=== PATIENT | male | born 1960 | race Caucasian/White ===

== ENCOUNTER 2023-11-19 14:24 | Emergency (ER) | payer OTHER, SELFPAY ==
[2023-11-19 14:26] VITALS: BP 130/81
[2023-11-19 15:21] VITALS: BP 133/70
[2023-11-19 15:44] LABS: % Basophils 0.2 % (0-2); % Eosinophils 0.2 % (0-6); % Immature Granulocytes 0.4 % (0-0.5); % Lymphocytes 8.5 % (20.5-51.1); % Monocytes 6.5 % (1.7-9.3); % Neutrophils 84.2 % (42.2-75.2); Absolute Immature Granulocytes 0.1 10^3/uL (0-0.05); Absolute Lymphocytes 1.1 10^3/uL (1.2-3.4); Absolute Monocytes 0.9 10^3/uL (0.1-0.6); Absolute Neutrophils 11.2 10^3/uL (1.4-6.5); Hematocrit 41.7 % (39.0-52.0); Mean Corpuscular Hgb 30.5 pg (27.0-31.0); Mean Corpuscular Volume 84.8 fL (80.0-94.0); Mean Platelet Volume 10.3 fL (7.4-10.4); Nucleated Red Blood Cells % 0 % (-); Platelet Count 160 10^3/uL (130-400); Red Blood Cell Count 4.92 10^6/uL (4.70-6.10); White Blood Cell Count 13.3 10^3/uL (4.8-10.8)
[2023-11-19 15:48] LABS: Urine Albumin Trace (Neg - Trace); Urine Bilirubin Negative (Negative); Urine Character Clear (Clear); Urine Color Yellow; Urine Glucose Negative (Negative); Urine Ketone Negative (Negative); Urine Leukocyte 2+ (Negative); Urine Nitrite Negative (Negative); Urine Occult Blood Trace (Negative); Urine Specific Gravity 1.015 (<1.030); Urine Urobilinogen 1+ (Neg - 1+)
[2023-11-19 15:55] LABS: Urine Bacteria Few (Negative); Urine Red Blood Cell 0-2 /HPF (0-2); Urine White Cell 50-60 /HPF (0-5)
[2023-11-19 16:00] VITALS: BP 128/86
[2023-11-19 16:03] LABS: ALT (SGPT) 44 U/L (0-50); AST (SGOT) 27 U/L (17-59); Albumin 4.5 g/dl (3.5-5.0); Alkaline Phosphatase 71 U/L (38-126); Blood Urea Nitrogen 15 mg/dl (9-20); Calcium 9.1 mg/dl (8.4-10.2); Carbon Dioxide 24 mmol/L (22-30); Chloride 100 mmol/L (98-107); Glucose 125 mg/dl (70-99); Sodium 135 mmol/L (135-145); Total Bilirubin 0.8 mg/dl (0.2-1.3); Total Protein 7.2 g/dl (6.3-8.2); eGFR > 60.00
[2023-11-19 16:32] VITALS: BMI 34.1
[2023-11-19] MEDS: ROCEPHIN 2000 MG IV (16:33)
[2023-11-19 16:43] VITALS: BP 155/86
[2023-11-19] MEDS: TORADOL 15 MG IV (16:50)
[2023-11-19] MEDS: ZOFRAN 4 MG IV (16:52)
[2023-11-19 17:00] VITALS: BP 128/78
[2023-11-19] MEDS: NSS 1000 IV (17:28)
[2023-11-19] MEDS: TYLENOL 650 MG PO (17:29)
[2023-11-19 18:00] VITALS: BP 119/98
--- NOTE | 2023-11-19 18:54 | ED.GENMED ---
History of Present Illness
General
Chief Complaint: Male Genito-Urinary Symptoms
Source: patient
Exam Limitations: none
Time Seen by Provider: 11/19/23 15:07
Nursing documentation reviewed up to this point in time: agreed with
History of Present Illness
History of Present Illness:
63-year-old male with past medical history of hypertension hyperlipidemia presenting to the emergency department today with concerns of ongoing urinary symptoms including frequency urgency as well as a fever now having some left-sided flank
discomfort starting today. Diagnosed with a UTI yesterday 3 total doses of Bactrim. He feels that symptoms are slightly worsened today which prompted come to the ER. Denies any history of urinary issues denies any bowel changes denies any chest
pain shortness of breath.
Past History
Past History
ED Past Medical History: HTN and Other (diverticulitis)
ED Past Surgical History: None
Social History
Tobacco: Non-smoker
Alcohol: None
Drug: None
Personal:
Living: with family
Employment: Employed
Review of Systems
Review of Systems
Allergies reviewed?: Yes
All Other Systems: ROS reviewed and negative except as documented in HPI and ROS
Phy Exam
Physical Exam
Physical Exam:
GENERAL: Alert , in no apparent distress
EYE: pupils equal and reactive
NECK: Supple, no significant adenopathy.
ENT: o/p clr, mmm.
CARDIAC: Regular rate and rhythm .
LUNGS: Clear breath sounds bilaterally, no acute respiratory distress, no wheezes/rales/rhonchi
ABDOMEN: Soft, without focal tenderness, no r/g, no cvat
NEUROLOGICAL: Alert and oriented, no focal neuro deficits
SKIN: Warm and dry, skin intact.
MUSCULOSKELETAL: No edema, well perfused.
PSYCH: Normal and appropriate interaction.
Course
Orders/Labs/Results
Orders:
Orders
11/19/23 15:27
Complete Blood Count/With Diff Urgent
Comprehensive Metabolic Panel Urgent
Urinalysis Reflex To Culture Urgent
Date Specimen was Collected: 11/19/23
Time Specimen was Collected: 15:22
Urine Microscopic Reflex Cult Urgent
Urine Culture Urgent
PRESTON Source: U
Specimen Description:
Date Specimen was Collected: 11/19/23
Time Specimen was Collected: 15:22
11/19/23 15:53
CefTRIAXone [Rocephin] 2,000 mg IV NOW STA
11/19/23 15:57
CT Abd/pel Without Iv Or Oral Urgent
Comment:
Reason For Exam: left flank pain
11/19/23 16:31
Sterile Water [Sterile Water For Injection] 20 ml .ROUTE .STK-MED
11/19/23 16:49
Ketorolac [Toradol] 15 mg .ROUTE .STK-MED ONE
Ondansetron Injectable [Zofran] 4 mg .ROUTE .STK-MED ONE
11/19/23 16:50
Ketorolac [Toradol] 15 mg IV NOW STA
11/19/23 16:52
Ondansetron Injectable [Zofran] 4 mg IV NOW STA
11/19/23 17:11
0.9% Sodium Chloride 1000 ml [Nss] 1,000 ml IV BOLUS
11/19/23 17:26
Acetaminophen [Tylenol] 650 mg .ROUTE .STK-MED ONE
11/19/23 17:29
Acetaminophen [Tylenol] 650 mg PO NOW STA
Abnormal Lab Results
11/19/23
15:27
WBC 13.3 H 10^3/uL
(4.8-10.8)
Abs Immat Gran (auto) 0.1 H 10^3/uL
(0-0.05)
Absolute Neuts (auto) 11.2 H 10^3/uL
(1.4-6.5)
Absolute Lymphs (auto) 1.1 L 10^3/uL
(1.2-3.4)
Absolute Monos (auto) 0.9 H 10^3/uL
(0.1-0.6)
Neutrophils % 84.2 H %
(42.2-75.2)
Lymphocytes % 8.5 L %
(20.5-51.1)
Glucose 125 H mg/dl
(70-99)
Ur Occult Blood Reflex Trace A
(Negative)
Leukocyte Esterase Rfl 2+ A
(Negative)
Urine WBC (Reflex) 50-60 A /HPF
(0-5)
Urine Bacteria (Reflex) Few A
(Negative)
11/19/23 15:27
11/19/23 15:27
Vital Signs
Initial and Last Documented VS:
Initial Vital Signs
Temp Pulse Resp BP Pulse Ox
101.1 F H 92 16 130/81 95
11/19/23 14:26 11/19/23 14:26 11/19/23 14:26 11/19/23 14:26 11/19/23 14:26
Last Documented Vital Signs
Temp Pulse Resp BP Pulse Ox
101.1 F H 92 16 119/98 91
11/19/23 14:26 11/19/23 14:26 11/19/23 14:26 11/19/23 18:00 11/19/23 18:00
MDM/Problems Addressed
MDM/Problems Addressed:
63-year-old male presenting to the emergency department today with concerns of worsening UTI symptoms. Diagnosed with a UTI yesterday started on Bactrim to 24 hours of medications at this point. Upon arrival patient with a temperature of 101.1 but
otherwise normal vital signs. White count of 13.3 other labs unremarkable. Urinalysis consistent with ongoing urinary tract infection. CT scan without emergent findings no signs of active kidney stones or significant inflammation seen. Patient
given dose of ceftriaxone here for ongoing UTI he claims symptoms were significantly improved throughout ER stay concerning this patient appears stable for outpatient management return precautions were given.
*Critical Care Note
Total Time (30-74mins, 75-104mins- exclusive of procedures): Not Applicable
ED Attending Note
-
Portions of this chart may have been created with voice recognition software.� Occasional wrong word or��sound alike� substitutions may have occurred due to the inherent limitations of voice recognition software.
Discharge Plan
Departure
Patient Disposition: Home (Routine Discharge)
Date of Disposition: 11/19/23
Time of Disposition: 18:55
Patient with high blood pressure during this ER visit?: No
Condition: Good
Covid-19: Not Applicable
Discharge Problem:
Pyelonephritis
Instructions: Urinary Tract Infection, Adult ED
Prescriptions:
New
cefpodoxime 200 mg tablet
200 mg PO BID 10 Days Qty: 20 0RF
No Action
Potaba 500 MG capsule
1 mg PO DAILY
aspirin 81 MG tablet,chewable
81 mg PO DAILY
benazepril [Lotensin] 20 MG tablet
20 mg PO DAILY
magnesium 250 MG tablet
250 mg PO DAILY
mecobalamin (vitamin B12) 1,000 MCG tablet,disintegrating
1,000 mcg sublingual DAILY
adgcegl-daoi-bvrhc-oreg-capryl
1 tab PO DAILY
Referrals:
Anita Lira DO [Family Provider] -
Activity Restrictions/Additional Instructions:
You came to the emergency department today with concerns of ongoing urinary symptoms. Here you to reassuring assessment you do have a slight white count. You are found to have ongoing urinary tract infection. You were switched to a cephalosporin.
Please take the cefpodoxime twice daily for the next 10 days and follow-up closely with the primary care doctor within 1 week. Return to the emergency department for any worsening, new or concerning symptoms.
Interventions
Interventions:
*General Assessment Last Done: 11/19/23 16:34
*Neglect/Abuse Screening Last Done: 11/19/23 16:34
ED- Fall Risk Assessment Last Done: 11/19/23 16:38
*ED COVID-19 Vaccine History Last Done: 11/19/23 16:34
*Nursing Disposition Last Done: 11/19/23 19:11
ED-Male Genitourinary Assessment Last Done: 11/19/23 16:44
Discharge Date and Time
Discharge Date/Time: 11/19/23 19:12
Print Language: DOMINICAN
== END 2023-11-19 19:12 | disposition home or self-care (01) ==
LOC: EMR 14:24
PROVIDERS: Physician Assistant; EMERGENCY PHYSICIAN Emergency Medicine; FAMILY PHYSICIAN Family Medicine
DX: N12 Tubulo-interstitial nephritis, not specified as acute or chronic (principal); I10 Essential (primary) hypertension; E78.00 Pure hypercholesterolemia, unspecified
CPT/HCPCS: 99284; 96374; 96375; 96361; 74176; 80053; 81003; 81015; 85025; 87086

== ENCOUNTER 2024-07-05 21:53 | Inpatient (IN) | payer BC, SELFPAY ==
[2024-07-05 18:18] VITALS: BP 141/87
[2024-07-05 18:36] LABS: % Basophils 0.1 % (0-2); % Eosinophils 0.3 % (0-6); % Immature Granulocytes 0.3 % (0-0.5); % Lymphocytes 12.2 % (20.5-51.1); % Monocytes 11.4 % (1.7-9.3); % Neutrophils 75.7 % (42.2-75.2); Absolute Lymphocytes 1.4 10^3/uL (1.2-3.4); Absolute Monocytes 1.3 10^3/uL (0.1-0.6); Absolute Neutrophils 8.8 10^3/uL (1.4-6.5); Hematocrit 44.5 % (39.0-52.0); Hemoglobin 15.4 g/dL (13.0-18.0); Mean Corp Hgb Conc. 34.6 g/dL (33.0-37.0); Mean Corpuscular Hgb 30.9 pg (27.0-31.0); Mean Corpuscular Volume 89.2 fL (80.0-94.0); Mean Platelet Volume 9.9 fL (7.4-10.4); Nucleated Red Blood Cells % 0 % (-); Platelet Count 185 10^3/uL (130-400); Red Blood Cell Count 4.99 10^6/uL (4.70-6.10); Red Cell Dist. Width 12.8 % (11.5-14.5); White Blood Cell Count 11.6 10^3/uL (4.8-10.8)
[2024-07-05 18:39] LABS: Urine Albumin 2+ (Neg - Trace); Urine Bilirubin Negative (Negative); Urine Character Clear (Clear); Urine Color Yellow; Urine Glucose Negative (Negative); Urine Ketone Negative (Negative); Urine Leukocyte Negative (Negative); Urine Nitrite Negative (Negative); Urine Occult Blood 2+ (Negative); Urine Specific Gravity 1.015 (<1.030); Urine Urobilinogen Negative (Neg - 1+)
[2024-07-05 18:54] LABS: ALT (SGPT) 65 U/L (0-50); AST (SGOT) 28 U/L (17-59); Albumin 5.1 g/dl (3.5-5.0); Alkaline Phosphatase 58 U/L (38-126); Blood Urea Nitrogen 20 mg/dl (9-20); Calcium 9.3 mg/dl (8.4-10.2); Carbon Dioxide 28 mmol/L (22-30); Chloride 100 mmol/L (98-107); Glucose 116 mg/dl (70-99); Potassium 4.3 mmol/L (3.5-5.1); Sodium 134 mmol/L (135-145); Total Bilirubin 0.9 mg/dl (0.2-1.3); Total Protein 7.7 g/dl (6.3-8.2); eGFR > 60.00
[2024-07-05 18:55] LABS: Lipase 121 U/L (23-300)
--- NOTE | 2024-07-05 19:14 | ED.GENMED ---
History of Present Illness
General
Chief Complaint: Abdominal Pain
Source: patient and spouse
Exam Limitations: none
Time Seen by Provider: 07/05/24 19:03
Nursing documentation reviewed up to this point in time: agreed with
History of Present Illness
History of Present Illness:
63 male history of diverticulitis no prior abdominal surgery nondrinker non-smoker 2 days of constipation lower abdominal pain urinary frequency no pain with urination no chest pain or shortness of breath no cough
Past History
Past History
ED Past Medical History: HTN and Other (diverticulitis)
ED Past Surgical History: None
Social History
Tobacco: Non-smoker
Alcohol: None
Drug: None
Personal:
Living: with family
Employment: Employed
Review of Systems
Review of Systems
All Other Systems: ROS reviewed and negative except as documented in HPI and ROS
Constitutional: Reports fever and fatigue
EENT: Reports no symptoms
Respiratory: Reports no symptoms; Denies trouble breathing
Cardiac: Reports no symptoms
ABD/GI: Reports abdominal pain and constipated
: Reports frequency
Musculoskeletal: Reports no symptoms
Skin: Reports no symptoms
Neurological: Reports weakness
Phy Exam
Physical Exam
Physical Exam:
Physical Exam
General: 63 male febrile looks uncomfortable
Neck: No jaundice
Heart: s1/s2 regular rate and rhythm, no murmur. equal radial pulses.
Lungs: no acute respiratory distress. clear bilaterally
Abdomen: Tender in the right greater than left lower abdomen
Neuro: alert and oriented. no focal neurological deficits
Skin: no rash
Psychiatric: well kept. interactive and cooperative
Extremities: no edema.
Sepsis
Sepsis Screening
Sepsis Assessment: Sepsis Ruled Out
Sepsis Screen
Sepsis Screen: Sepsis Ruled Out
Date: 07/05/24
Time: 20:20
Course
Orders/Labs/Results
Orders:
Orders
07/05/24 18:29
Complete Blood Count/With Diff Urgent
Comprehensive Metabolic Panel Urgent
Lipase Urgent
Urinalysis Reflex To Culture Urgent
Date Specimen was Collected: 07/05/24
Time Specimen was Collected: 18:13
Urine Microscopic Reflex Cult Urgent
07/05/24 19:12
CT Abd/Pel (IV only)-DH only Urgent
Comment:
Reason For Exam: pain fever
0.9% Sodium Chloride 1000 ml [Nss] 1,000 ml IV BOLUS
Acetaminophen [Tylenol] 1,000 mg PO NOW STA
HYDROmorphone [Dilaudid] 1 mg IV NOW STA
Ondansetron Injectable [Zofran] 4 mg IV NOW STA
Abnormal Lab Results
07/05/24
18:29
WBC 11.6 H 10^3/uL
(4.8-10.8)
Absolute Neuts (auto) 8.8 H 10^3/uL
(1.4-6.5)
Absolute Monos (auto) 1.3 H 10^3/uL
(0.1-0.6)
Neutrophils % 75.7 H %
(42.2-75.2)
Lymphocytes % 12.2 L %
(20.5-51.1)
Monocytes % 11.4 H %
(1.7-9.3)
Sodium 134 L mmol/L
(135-145)
Glucose 116 H mg/dl
(70-99)
ALT 65 H U/L
(0-50)
Albumin 5.1 H g/dl
(3.5-5.0)
Ur Occult Blood Reflex 2+ A
(Negative)
Urine RBC 3-6 A /HPF
(0-2)
Urine Bacteria (Reflex) Few A
(Negative)
Urine Albumin (Reflex) 2+ A
(Neg - Trace)
07/05/24 18:29
07/05/24 18:29
Vital Signs
Initial and Last Documented VS:
Initial Vital Signs
Temp Pulse Resp BP Pulse Ox
101.0 F H 93 17 141/87 96
07/05/24 18:18 07/05/24 18:18 07/05/24 18:18 07/05/24 18:18 07/05/24 18:18
Last Documented Vital Signs
Temp Pulse Resp BP Pulse Ox
99.7 F 82 20 126/77 95
07/05/24 19:39 07/05/24 19:40 07/05/24 19:40 07/05/24 19:40 07/05/24 19:40
MDM/Problems Addressed
Differential Diagnosis Includes:
Diverticulitis appendicitis colitis urinary pathology viral syndrome
MDM/Problems Addressed:
Constipation lower abdominal pain fever
Chronic conditions affecting care:
Diverticula
Acute Exacerbation and/or Progression of Chronic Illness:
Diverticulitis
*Radiology
Radiology exam reviewed: radiology read reviewed
*Pulse Oximetry
Patient hypoxic: no
*Critical Care Note
Total Time (30-74mins, 75-104mins- exclusive of procedures): Not Applicable
Update Note
Update Note:
Update labs noted, CT report noted reviewed with patient on exam still has moderate tenderness in the right lower abdomen believe at this point would be prudent admitted to the hospital serial abdominal exams IV antibiotics consideration for
specialty consultation
ED Attending Note
-
Portions of this chart may have been created with voice recognition software.� Occasional wrong word or��sound alike� substitutions may have occurred due to the inherent limitations of voice recognition software.
Discharge Plan
Departure
Patient Disposition: Admit
Date of Disposition: 07/05/24
Time of Disposition: 20:19
Presentation/result/management discussed w/ accepting MD/DO: Hospitalist
Patient with high blood pressure during this ER visit?: No
Condition: Fair
Discharge Problem:
Diverticulitis
Prescriptions:
No Action
Potaba 500 MG capsule
1 mg PO DAILY
aspirin 81 MG tablet,chewable
81 mg PO DAILY
benazepril [Lotensin] 20 MG tablet
20 mg PO DAILY
magnesium 250 MG tablet
250 mg PO DAILY
mecobalamin (vitamin B12) 1,000 MCG tablet,disintegrating
1,000 mcg sublingual DAILY
uclxypc-tpmu-cclse-oreg-capryl
1 tab PO DAILY
cefpodoxime 200 mg tablet
200 mg PO BID 10 Days Qty: 20 0RF
Referrals:
Ulises Knapp MD [Family Provider] -
Interventions
Interventions:
*Risk Screen - Suicide Last Done: 07/05/24 18:21
*General Assessment Last Done: 07/05/24 18:21
*Neglect/Abuse Screening Last Done: 07/05/24 18:21
*ED COVID-19 Vaccine History Last Done: 07/05/24 18:21
BS-Zzdaru-Wdgydtmgqq Assessment Last Done: 07/05/24 19:46
Discharge Date and Time
Print Language: GREENLANDIC
[2024-07-05 19:28] LABS: Urine Mucus Moderate; Urine Squamous Cell 0-2 /LPF (Few)
[2024-07-05 19:29] LABS: Urine Bacteria Few (Negative); Urine White Cell 0-2 /HPF (0-5)
[2024-07-05 19:39] VITALS: BMI 33.7
[2024-07-05 19:40] VITALS: BP 126/77
[2024-07-05] MEDS: NSS 1000 IV ×3 (19:41→22:57)
[2024-07-05] MEDS: TYLENOL 1000 MG PO (19:44)
[2024-07-05] MEDS: ZOFRAN 4 MG IV (19:46)
[2024-07-05] MEDS: DILAUDID 1 MG IV (19:50)
--- NOTE | 2024-07-05 20:55 | HPS.HSE ---
Family Physician
-
Family Physician: Ulises Knapp
Chief Complaint
-
Abd pain / fever
History of Present Illness
Patient is a 63y M with PMH significant for hypertension and diverticular disease who presents to ED complaining of abdominal pain. Patient states that he has been constipated for the past few days. Recent started a new weight loss diet with
increased fiber intake / raw fruits and vegetables. He developed RLQ abdominal pain about 2 days ago. Pain has persisted / increased since that time. Today he noted fever at home and presented to the ED for further evaluation and treatment.
Patient has prior h/o diverticulitis in the past. Last episode was 2015. Has not required surgery in the past for diverticular disease.
Medical History
Past Medical History
Past Medical History: Reports Other
Additional Past Medical History:
Hypertension
Diverticular Disease
Skin Cancer
Past Surgical History: Reports Other
Additional Past Surgical History:
Mohs Surgery
Cataracts
Social History
Tobacco: Non-smoker
Alcohol: Occasional
Drug: None
Family History
Family History: Not pertinent
Allergies / Home Medications
Allergies reflects when Allergies were last updated in [facility].
Home Medications with original date entered in [facility]
Allergy/Medication List:
Allergies
Allergy/AdvReac Type Severity Reaction Status Date / Time
No Known Allergies Allergy Verified 07/05/24 19:50
Home Medications
aspirin 81 mg chewable tablet 81 mg PO DAILY 08/24/18
benazepril 20 mg tablet (Lotensin) 20 mg PO DAILY 08/24/18
turmeric 400 mg capsule 400 mg PO DAILY 09/10/22
cyanocobalamin (vitamin B-12) 1,000 mcg tablet 1,000 mcg PO DAILY 07/05/24
docusate sodium 100 mg capsule (Colace) 200 mg PO HSPRN PRN constipation 07/05/24
magnesium oxide 250 mg PO DAILY 07/05/24
omega 7-zsr-srs-fish oil 1,000 mg (120 mg-180 mg) capsule (Fish Oil) 1 cap PO DAILY 07/05/24
potassium 99 mg tablet 99 mg PO DAILY 07/05/24
Review of Systems
-
History Source: Patient
A 12 point ROS was completed and negative except as noted: Yes
Constitutional: Reports Fever, Fatigue and Chills
EENT: Denies Sore Throat
Respiratory: Denies Cough or Trouble Breathing
Cardiac: Denies Chest Pain or Palpitations
Abdomen/GI: Reports Abdominal Pain and Constipated; Denies Nausea, Vomiting, Diarrhea, Bloody Stools or Black Stools
: Denies Dysuria, Frequency or Flank Pain
Musculoskeletal: Denies Joint Pain or Edema
Neurological: Denies Dizzy or Headache
Psych: Denies Depression or Anxiety
Physical Exam
Vital Signs
Vital Signs
Temp Pulse Resp BP Pulse Ox
99.7 F 82 20 126/77 95
07/05/24 19:39 07/05/24 19:40 07/05/24 19:40 07/05/24 19:40 07/05/24 19:40
Physical Exam
General: Other (63y M in no acute distress.)
HEENT: Moist mucous membranes and PERRLA
Respiratory: Clear; No Wheezes, Rales or Rhonchi
Cardiac: S1/S2 and Regular Rhythm; No Murmur
GI: Soft, Non Distended, Normal Bowel Sounds and Other (Pos tenderness R abdomen - mostly in RLQ. No rebound / guarding.)
Musculoskeletal: No Clubbing, No Cyanosis and No Edema
Neuro: AO x 3
Laboratory Results
-
07/05/24 18:29
07/05/24 18:29
Laboratory Results
Total Bilirubin 0.9 mg/dl (0.2-1.3) 07/05/24 18:29
AST 28 U/L (17-59) 07/05/24 18:
ALT 65 U/L (0-50) H 07/05/24 18:
Alkaline Phosphatase 58 U/L (38-126) 07/05/24 18:
Lipase 121 U/L (23-300) 07/05/24 18:
Impression/Plan
-
A/P: Patient is a 63y M with PMH significant for hypertension and diverticular disease who presents to ED complaining of abdominal pain and fever.
Acute Sigmoid Diverticulitis
Sepsis secondary to the above
- Admit for further evaluation and treatment.
- Patient presents with fever, tachycardia and tachypnea with CT and exam findings c/w diverticulitis.
- IV abx with Zosyn - transition to PO regimen once clinically improved.
- Supportive care with IVFs, pain control, etc.
- Follow for clinical improvement.
Benign Hypertension
- Stable. Continue home regimen with holding parameters.
DVT Prophylaxis: Lovenox
Code Status: Full
[2024-07-05 21:29] VITALS: BP 111/79
[2024-07-05] MEDS: ZOSYN 100 IV (21:36)
[2024-07-05 22:00] VITALS: BP 102/70
[2024-07-05 22:40] VITALS: BMI 33.9
[2024-07-05 22:41] VITALS: BP 117/71
[2024-07-05] MEDS: COMPAZINE 5 MG IV (22:57)
[2024-07-06] MEDS: ZOSYN 50 IV ×4 (03:10→22:36)
[2024-07-06 06:31] LABS: Hemoglobin 13.6 g/dL (13.0-18.0); Mean Corp Hgb Conc. 34.9 g/dL (33.0-37.0); Mean Corpuscular Hgb 31.1 pg (27.0-31.0); Mean Platelet Volume 9.9 fL (7.4-10.4); Platelet Count 144 10^3/uL (130-400); Red Blood Cell Count 4.38 10^6/uL (4.70-6.10); Red Cell Dist. Width 12.5 % (11.5-14.5)
[2024-07-06] MEDS: NSS 1000 IV ×2 (06:33→15:14)
[2024-07-06 06:51] LABS: Blood Urea Nitrogen 14 mg/dl (9-20); Calcium 8.4 mg/dl (8.4-10.2); Carbon Dioxide 28 mmol/L (22-30); Chloride 106 mmol/L (98-107); Estimated Creatinine Clearance 95 ml/min; Glucose 119 mg/dl (70-99); Potassium 4.6 mmol/L (3.5-5.1); Sodium 139 mmol/L (135-145); eGFR > 60.00
[2024-07-06 07:41] LABS: Hepatitis C Antibody Negative (Negative)
--- NOTE | 2024-07-06 07:55 | W.PN.HOSP.TC ---
Today's Communication/Plan
-
see PN
Assessment / Plan
Assessment / Plan
63yo M with PMHx of HTN, diverticulitis in 2016 came with week of constipation and worsening abdominal pain, found uncomplicated sigmoid diverticulitis with severe diverticulosis
A/P:
#uncomplicated sigmoid diverticulitis with severe diverticulosis
In the right paramedian pelvis - RLQ abd pain, appendix nomal as per CT
Zosyn
advance diet
pain mgmt
IVF
Outpatient colonoscopy in 4-6 weeks- patient verbalized understanding of the instructions
#Constipation
Laxatives PRN
#Fatty liver with mild ALT elevation
low fat diet
follow up with PCP
#R renal cyst
no follow up advised
#DJD
PT/OT
Tylenol
DVT ppx lovenox
Full code
I have spent at least 58min reviewing chart, test results and providing direct patient care
Anticipated Discharge: > 48 hours
Subjective/Interval History
-
Date of Service: July 06, 2024
Objective Data
-
Labs:
Laboratory Results
07/06/24
06:12
WBC 10.0
Hgb 13.6
Hct 39.0
Plt Count 144 D
Sodium 139
Potassium 4.6
Chloride 106
Carbon Dioxide 28
BUN 14
Creatinine 1.0
Glucose 119 H
Calcium 8.4
Vital Signs:
Vital Signs
Temp Pulse Resp BP Pulse Ox
97.8 F 85 18 117/71 95
07/06/24 03:17 07/05/24 22:41 07/05/24 22:41 07/05/24 22:41 07/06/24 03:15
I&O
07/05/24 07/06/24 07/07/24
06:59 06:59 06:59
Intake Total 1440 / 1440
Output Total 1849
Balance -410 / -410
Review of Systems
-
History Source: Patient
All other systems: Reviewed and negative
Abdomen/GI: Reports Abdominal Pain
Physical Exam
-
General: No Apparent Distress
HEENT: Normocephalic
Respiratory: Clear to Auscultation
Cardiac: Regular Rhythm
GI: Soft, Nondistended and Tender (RLQ)
Musculoskeletal: No Clubbing, No Cyanosis and No Edema
Skin: Warm
Neuro: Awake, Alert, Oriented and AO x 3
Psych: Calm
[2024-07-06] MEDS: SENOKOT-S 1 TABLET PO ×2 (08:24→22:36)
[2024-07-06] MEDS: LOW STRENGTH ASPIRIN 81 MG PO (08:24)
[2024-07-06] MEDS: ZESTRIL 20 MG PO (08:24)
[2024-07-06] MEDS: MIRALAX 17 GRAMS PO (08:24)
[2024-07-06 15:17] VITALS: BP 119/76
--- NOTE | 2024-07-06 15:33 | PTCARENOTE ---
verbal report over phone provided to Leighton Rn. pt is being transported in wheelchair to [facility] by this RN.
[2024-07-06 16:01] VITALS: BP 120/78
--- NOTE | 2024-07-06 16:05 | PN.CDI ---
Addendum entered and electronically signed by Aristides Milan MD 07/07/24 07:16:
patient not septic
Original Note:
CDI
- -
CDI:
Physician Documentation Request
Admit Date: 07/05/24 21:53
Dear Doctor Kayli,
Clinical Indicators:
The diagnosis of Sepsis was documented on 07/05, but is not consistently noted in subsequent documentation.
07/06 H & P, 'Sigmoid Diverticulitis Sepsis secondary to the above... Patient presents with fever, tachycardia and tachypnea'
Temp on admission:
07/05/24
18:18
Temp 101.0 F H
HR on admission:
07/05/24
18:18
Pulse 93
Please clarify the following:
Sepsis was present on admission and is now resolved.
Sepsis was ruled out
Other
Use of terms such as suspected, likely, concern for, or probable (associated with a specific diagnosis that is being evaluated, monitored, or treated as if it exists) are acceptable and can be coded in the inpatient setting, when documented at the
time of discharge.
Thank you,
Flavia Diaz RN BSN
CDI Specialist
available via tiger text
Please use your independent medical judgment in providing your response.
[2024-07-06] MEDS: LOVENOX 40 MG SC (17:06)
[2024-07-06 23:00] VITALS: BP 123/78
[2024-07-07] MEDS: NSS 1000 IV (00:29)
[2024-07-07] MEDS: ZOSYN 50 IV ×4 (06:02→22:22)
[2024-07-07 07:05] VITALS: BP 143/86
[2024-07-07 07:38] LABS: % Basophils 0.2 % (0-2); % Eosinophils 2.3 % (0-6); % Immature Granulocytes 0.2 % (0-0.5); % Lymphocytes 24.1 % (20.5-51.1); % Monocytes 11.2 % (1.7-9.3); Absolute Eosinophils 0.1 10^3/uL (0-0.7); Absolute Lymphocytes 1.3 10^3/uL (1.2-3.4); Absolute Monocytes 0.6 10^3/uL (0.1-0.6); Absolute Neutrophils 3.3 10^3/uL (1.4-6.5); Hematocrit 39.6 % (39.0-52.0); Hemoglobin 13.3 g/dL (13.0-18.0); Mean Corp Hgb Conc. 33.6 g/dL (33.0-37.0); Mean Corpuscular Hgb 30.6 pg (27.0-31.0); Mean Platelet Volume 10.4 fL (7.4-10.4); Nucleated Red Blood Cells % 0 % (-); Platelet Count 153 10^3/uL (130-400); Red Blood Cell Count 4.35 10^6/uL (4.70-6.10); Red Cell Dist. Width 12.8 % (11.5-14.5); White Blood Cell Count 5.3 10^3/uL (4.8-10.8)
[2024-07-07 08:07] LABS: ALT (SGPT) 43 U/L (0-50); AST (SGOT) 23 U/L (17-59); Albumin 3.6 g/dl (3.5-5.0); Alkaline Phosphatase 46 U/L (38-126); Blood Urea Nitrogen 11 mg/dl (9-20); Calcium 8.8 mg/dl (8.4-10.2); Carbon Dioxide 30 mmol/L (22-30); Chloride 107 mmol/L (98-107); Estimated Creatinine Clearance 73 ml/min; Glucose 102 mg/dl (70-99); Potassium 4.5 mmol/L (3.5-5.1); Sodium 142 mmol/L (135-145); Total Bilirubin 0.8 mg/dl (0.2-1.3); Total Protein 6.2 g/dl (6.3-8.2); eGFR > 60.00
[2024-07-07] MEDS: LOW STRENGTH ASPIRIN 81 MG PO (08:59)
[2024-07-07] MEDS: SENOKOT-S 1 TABLET PO ×2 (08:59→20:16)
[2024-07-07] MEDS: ZESTRIL 20 MG PO (09:07)
[2024-07-07] MEDS: MIRALAX PO (09:38)
[2024-07-07] MEDS: MIRALAX 17 GRAMS PO ×2 (09:41→20:16)
--- NOTE | 2024-07-07 10:55 | W.PN.HOSP.TC ---
Today's Communication/Plan
-
Still no BM and persistent discomfort - cont IV Zosyn
EKG for QTc for eventual outpatient Abx
cont full liqud diet
add BID miralax
labs in AM
Assessment / Plan
Assessment / Plan
63yo M with PMHx of HTN, diverticulitis in 2016 came with week of constipation and worsening abdominal pain, found uncomplicated sigmoid diverticulitis with severe diverticulosis
A/P:
#uncomplicated sigmoid diverticulitis with severe diverticulosis
In the right paramedian pelvis - RLQ abd pain, appendix nomal as per CT
Zosyn
advance diet
pain mgmt
IVF
Outpatient colonoscopy in 4-6 weeks- patient verbalized understanding of the instructions
#Constipation
Laxatives PRN
#Fatty liver with mild ALT elevation
low fat diet
follow up with PCP
#R renal cyst
no follow up advised
#DJD
PT/OT
Tylenol
DVT ppx lovenox
Full code
I have spent at least 58min reviewing chart, test results and providing direct patient care
Anticipated Discharge: 24 - 48 hours
Subjective/Interval History
-
Date of Service: July 07, 2024
Objective Data
-
Labs:
Laboratory Results
07/07/24
07:02
WBC 5.3
Hgb 13.3
Hct 39.6
Plt Count 153
Sodium 142
Potassium 4.5
Chloride 107
Carbon Dioxide 30
BUN 11
Creatinine 1.3
Glucose 102 H
Calcium 8.8
Total Bilirubin 0.8
AST 23
ALT 43
Alkaline Phosphatase 46
Vital Signs:
Vital Signs
Temp Pulse Resp BP Pulse Ox
98.8 F 58 18 134/79 96
07/07/24 07:05 07/07/24 09:07 07/07/24 07:05 07/07/24 09:07 07/07/24 09:43
I&O
07/06/24 07/07/24 07/08/24
06:59 06:59 06:59
Intake Total 1440 / 1440 2310 / 2310
Output Total 1850 / 1850 480 / 480
Balance -410 / -410 1830 / 1830
Review of Systems
-
History Source: Patient
All other systems: Reviewed and negative
Abdomen/GI: Reports Constipated
[2024-07-07 15:05] VITALS: BP 130/82
--- NOTE | 2024-07-07 15:42 | CM ---
CM following re: discharge planning.
Reviewed pt's chart, met with pt.
Pt is a 63 year old male, admitted with primary dx of DVY, Sepsis.
Pt reports he lives with spouse 2SH, 3 steps to enter, has 6 supportive children. Pt described himself as independent in all areas PERFUMER, drives, works.
PCP: Ulises Knapp
Pharmacy: [facility]
D/C plan: home with anticipated no needs. Spouse to transport at discharge.
CM will follow with discharge plan updates as hospitalization progresses
[2024-07-07] MEDS: LOVENOX 40 MG SC (17:08)
[2024-07-07 23:00] VITALS: BP 123/74
[2024-07-08] MEDS: ZOSYN 50 IV ×2 (03:20→09:21)
[2024-07-08 05:41] LABS: % Basophils 0.4 % (0-2); % Eosinophils 4.1 % (0-6); % Immature Granulocytes 0.2 % (0-0.5); % Lymphocytes 33.3 % (20.5-51.1); % Monocytes 11.4 % (1.7-9.3); % Neutrophils 50.6 % (42.2-75.2); Absolute Eosinophils 0.2 10^3/uL (0-0.7); Absolute Lymphocytes 1.6 10^3/uL (1.2-3.4); Absolute Monocytes 0.5 10^3/uL (0.1-0.6); Absolute Neutrophils 2.4 10^3/uL (1.4-6.5); Hematocrit 40.2 % (39.0-52.0); Hemoglobin 13.7 g/dL (13.0-18.0); Mean Corp Hgb Conc. 34.1 g/dL (33.0-37.0); Mean Corpuscular Volume 88.2 fL (80.0-94.0); Mean Platelet Volume 10.5 fL (7.4-10.4); Nucleated Red Blood Cells % 0 % (-); Platelet Count 184 10^3/uL (130-400); Red Blood Cell Count 4.56 10^6/uL (4.70-6.10); Red Cell Dist. Width 12.3 % (11.5-14.5); White Blood Cell Count 4.7 10^3/uL (4.8-10.8)
[2024-07-08 05:50] LABS: ALT (SGPT) 45 U/L (0-50); AST (SGOT) 24 U/L (17-59); Albumin 3.8 g/dl (3.5-5.0); Alkaline Phosphatase 51 U/L (38-126); Blood Urea Nitrogen 11 mg/dl (9-20); Calcium 9.2 mg/dl (8.4-10.2); Carbon Dioxide 28 mmol/L (22-30); Chloride 104 mmol/L (98-107); Estimated Creatinine Clearance 80 ml/min; Glucose 100 mg/dl (70-99); Potassium 4.2 mmol/L (3.5-5.1); Sodium 140 mmol/L (135-145); Total Bilirubin 0.6 mg/dl (0.2-1.3); Total Protein 6.5 g/dl (6.3-8.2); eGFR > 60.00
[2024-07-08 07:30] VITALS: BP 128/82
[2024-07-08] MEDS: ZESTRIL 20 MG PO (08:15)
[2024-07-08] MEDS: LOW STRENGTH ASPIRIN 81 MG PO (08:15)
[2024-07-08] MEDS: SENOKOT-S 1 TABLET PO (08:15)
[2024-07-08] MEDS: MIRALAX 17 GRAMS PO (08:15)
--- NOTE | 2024-07-08 10:05 | W.PN.HOSP.TC ---
Today's Communication/Plan
-
dc if tolerated low residue diet
Assessment / Plan
Assessment / Plan
63yo M with PMHx of HTN, diverticulitis in 2015 came with week of constipation and worsening abdominal pain, found uncomplicated sigmoid diverticulitis with severe diverticulosis. COnstipation resolved, pain improved. With normal QTc - reasonable to
d/c on standart of care meds: Levaquin/Flagyl. Avoidance of alcohol and significant physical activity (due to risk of tendon rupture) during courrse of abx was discussed with patient and he verbalized agreement and understanding of the instructions.
COlonoscopy with his established doctor in 4-6 week in [facility] recommended also. medically stable for d/c if tolerated low residue diet
A/P:
#uncomplicated sigmoid diverticulitis with severe diverticulosis
In the right paramedian pelvis - RLQ abd pain, appendix nomal as per CT
Zosyn
advance diet
pain mgmt
IVF
Outpatient colonoscopy in 4-6 weeks- patient verbalized understanding of the instructions
#Constipation
Laxatives PRN
#Fatty liver with mild ALT elevation
low fat diet
follow up with PCP
#R renal cyst
no follow up advised
#DJD
PT/OT
Tylenol
DVT ppx lovenox
Full code
I have spent at least 58min reviewing chart, test results and providing direct patient care
Anticipated Discharge: Within 24 hours
Subjective/Interval History
-
Date of Service: July 08, 2024
Objective Data
-
Labs:
Laboratory Results
07/08/24
04:23
WBC 4.7 L
Hgb 13.7
Hct 40.2
Plt Count 184 D
Sodium 140
Potassium 4.2
Chloride 104
Carbon Dioxide 28
BUN 11
Creatinine 1.2
Glucose 100 H
Calcium 9.2
Total Bilirubin 0.6
AST 24
ALT 45
Alkaline Phosphatase 51
Vital Signs:
Vital Signs
Temp Pulse Resp BP Pulse Ox
97.7 F 63 14 128/82 97
07/08/24 07:30 07/08/24 07:30 07/08/24 07:30 07/08/24 08:15 07/08/24 08:27
I&O
07/07/24 07/08/24 07/09/24
06:59 06:59 06:59
Intake Total 2310 / 2310 1989
Output Total 480 / 480
Balance 1830 / 1830 1989
Review of Systems
-
History Source: Patient
All other systems: Reviewed and negative
Physical Exam
-
General: No Apparent Distress
HEENT: Normocephalic
Cardiac: Regular Rhythm
GI: Soft, Nontender and Nondistended
Neuro: Awake, Alert, Oriented and AO x 3
Psych: Calm
--- NOTE | 2024-07-08 10:11 | W.DCSUMMARY ---
Discharge Summary
Discharge Data
Date of Admission: 07/05/24
Date of Discharge: 07/08/24
-
Pending Results: No
Hospital Course
63yo M with PMHx of HTN, diverticulitis in 2016 came with week of constipation and worsening abdominal pain, found uncomplicated sigmoid diverticulitis with severe diverticulosis. COnstipation resolved, pain improved. With normal QTc - reasonable to
d/c on standart of care meds: Levaquin/Flagyl. Avoidance of alcohol and significant physical activity (due to risk of tendon rupture) during courrse of abx was discussed with patient and he verbalized agreement and understanding of the instructions.
COlonoscopy with his established doctor in [address] [facility] recommended also. medically stable for d/c since tolerated low residue diet
I have spent at least 38min reviewing chart, test results and providing direct patient care
Patient was managed for:
#uncomplicated sigmoid diverticulitis with severe diverticulosis
#Constipation
#Fatty liver with mild ALT elevation
#R renal cyst
#DJD
Discharge Plan
-
Patient Disposition: Home (Routine Discharge)
Discharge Diagnosis/Procedures: DIverticulitis
Diet: Low Residue
Activity: As tolerated
Driving Restrictions: As prior to admission
Referrals:
Ulises Knapp MD [Family Provider] -
Additional Discharge Medication Instructions: Schedule appointment with your doctor in [facility] for colonoscopy in 4-6 weeks
Prescriptions:
New
levofloxacin 750 mg tablet
750 mg PO DAILY Qty: 5 0RF
metronidazole 500 mg tablet
500 mg PO Q8H Qty: 15 0RF
Continued
aspirin 81 MG tablet,chewable
81 mg PO DAILY
benazepril [Lotensin] 20 MG tablet
20 mg PO DAILY
turmeric 400 mg Capsule
400 mg PO DAILY
cyanocobalamin (vitamin B-12) 1,000 mcg Tablet
1,000 mcg PO DAILY
potassium 99 mg Tablet
99 mg PO DAILY
docusate sodium [Colace] 100 mg Capsule
200 mg PO HSPRN PRN (Reason: constipation)
magnesium oxide 250 mg magnesium Tablet
250 mg PO DAILY
omega [id number]-fish oil [Fish Oil] 1,000 (120-180) mg Capsule
1 cap PO DAILY
Discharge Date and Time
Print Language: BRITISH
--- NOTE | 2024-07-08 10:31 | CM ---
CM following re: discharge planning.
Reviewed pt's chart, met with pt.
Discharge order noted. Pt is aware and he stated his spouse is coming to transport home.
Pt is independent with functional ability and no after care VN services indicated.
D/C plan: home no needs. Spouse to transport.
[2024-07-08 13:26] VITALS: BP 142/85
== END 2024-07-08 13:25 | disposition home or self-care (01) | DRG 392 ==
LOC: 3 WEST ACU 21:53
PROVIDERS: Emergency Medicine; ADMITTING PHYSICIAN Hospitalist; ATTENDING PHYSICIAN Internal Medicine; EMERGENCY PHYSICIAN Emergency Medicine; FAMILY PHYSICIAN Family Medicine
DX: K57.32 Diverticulitis of large intestine without perforation or abscess without bleeding (principal); K59.00 Constipation, unspecified; K76.0 Fatty (change of) liver, not elsewhere classified; N28.1 Cyst of kidney, acquired; M19.90 Unspecified osteoarthritis, unspecified site; I10 Essential (primary) hypertension; Z85.828 Personal history of other malignant neoplasm of skin; Z79.82 Long term (current) use of aspirin
CPT/HCPCS: 74177; 80048; 80053; 81003; 81015; 83690; 85025; 85027; 86803; 93005; 96361; 96374; 96375; 99285; Q9967